=== PATIENT | female | born 1950 | race Caucasian/White ===

== ENCOUNTER 2024-09-16 19:04 | Emergency (ER) | payer MEDICARE, SELFPAY ==
[2024-09-16 19:10] VITALS: BP 171/112
[2024-09-16 20:52] VITALS: BP 186/92
[2024-09-16 20:54] VITALS: BP 186/92; BMI 39.8
--- NOTE | 2024-09-16 21:01 | ED.GENMED ---
History of Present Illness
General
Chief Complaint: Oral/Mouth Problem
Time Seen by Provider: 09/16/24 20:46
History of Present Illness
History of Present Illness:
74-year-old female presents to the emergency department for evaluation of right-sided tongue swelling that began this afternoon. She states she excellently bit herself on the tongue and about 1 hour later noted severe swelling that caused her to
have difficulty speaking. She went to urgent care this evening and was given oral prednisone and feels as though at this time the symptoms have improved. She was advised to come to the ER due to the degree of edema. She is not on any blood
thinners
Review of Systems
Review of Systems
Allergies reviewed?: Yes
All Other Systems: ROS reviewed and negative except as documented in HPI and ROS
Phy Exam
Physical Exam
Physical Exam:
GEN: Well appearing, NAD, WDWN
HEENT: Oral mucosa moist, no scleral icterus. Mild edema of the right tongue that does not cross the midline with an associated ecchymotic area on the lateral aspect at the site of prior injury, oropharynx clear normal phonation and speech
Cardiac: Regular rate
Lung: No respiratory distress, no tachypnea
MSK: No gross deformity or injuries
Skin: Good color, no pallor or jaundice, no rashes
Neuro: AO x3, moves all extremities freely
Psych: Calm, cooperative
Course
Orders/Labs/Results
Orders:
Orders
09/16/24 21:01
Ketorolac [Toradol] 30 mg IM NOW STA
Vital Signs
Initial and Last Documented VS:
Initial Vital Signs
Temp Pulse Resp BP Pulse Ox
98.5 F 71 18 171/112 98
09/16/24 19:10 09/16/24 19:10 09/16/24 19:10 09/16/24 19:10 09/16/24 19:10
Last Documented Vital Signs
Temp Pulse Resp BP Pulse Ox
98.5 F 73 18 186/92 95
09/16/24 19:10 09/16/24 20:54 09/16/24 20:54 09/16/24 20:54 09/16/24 21:01
MDM/Problems Addressed
MDM/Problems Addressed:
This was likely transient swelling due to acute trauma from self biting the tongue, I have low concern that this represents angioedema. Unlikely that the steroids provided any clinical benefit after 2 to 3 hours prior to my evaluation in the ER,
will treat with anti-inflammatories and recommend ice to reduce swelling. Denies location for epinephrine or any histamines
*Pulse Oximetry
SaO2: 95
Oxygen Mode of Delivery: Room air
Patient hypoxic: no
*Critical Care Note
Total Time (30-74mins, 75-104mins- exclusive of procedures): Not Applicable
ED Attending Note
-
Portions of this chart may have been created with voice recognition software.� Occasional wrong word or��sound alike� substitutions may have occurred due to the inherent limitations of voice recognition software.
Discharge Plan
Departure
Patient Disposition: Home (Routine Discharge)
Date of Disposition: 09/16/24
Time of Disposition: 21:01
Patient with high blood pressure during this ER visit?: Yes
Discharge Problem:
Hematoma of tongue
Activity Restrictions/Additional Instructions:
Ice the tongue to reduce swelling
Take ibuprofen 600mg every 6-8 hours
Return if worsening
Interventions
Interventions:
*Risk Screen - Suicide Last Done: 09/16/24 19:14
*General Assessment Last Done: 09/16/24 19:14
*Neglect/Abuse Screening Last Done: 09/16/24 19:14
*ED- Fall Risk Assessment Last Done: 09/16/24 21:14
*ED COVID-19 Vaccine History Last Done: 09/16/24 21:14
*Nursing Disposition Last Done: 09/16/24 21:14
Discharge Date and Time
Discharge Date/Time: 09/16/24 21:14
Print Language: CROATIAN
[2024-09-16] MEDS: TORADOL 30 MG IM (21:09)
== END 2024-09-16 21:14 | disposition home or self-care (01) ==
LOC: EMR 19:04
PROVIDERS: EMERGENCY PHYSICIAN Emergency Medicine; FAMILY PHYSICIAN Internal Medicine
DX: S00.532A Contusion of oral cavity, initial encounter (principal); X58.XXXA Exposure to other specified factors, initial encounter
CPT/HCPCS: 99284; 96372